=== PATIENT | female | born 1935 ===

== ENCOUNTER 2022-04-06 19:21 | Emergency (ER) | payer OTHER ==
[~2022-04-06] VITALS: Ht 165.1 cm; Wt 49.9 kg
[2022-04-06] MEDS ORDERED: ONDANSETRON 4 MG/2 ML VIAL IV ONE (19:45)
[2022-04-06] MEDS ORDERED: IV NORMAL SALINE 1000 ML BAG IV ONE (19:45)
[2022-04-06 20:19] LABS: MEAN CORPUSCULAR HEMOGLOBIN 31.8 uug (23.8-33.4); MEAN CORPUSCULAR VOLUME 95.1 fL (73.0-96.2); PLATELET COUNT (AUTO) 240 K/uL (152-348)
[2022-04-06 20:28] LABS: CARBON DIOXIDE 29 mmol/L (21-32); CHLORIDE 103 mmol/L (98-107); CREATININE 0.7 mg/dL (0.6-1.3); GLUCOSE 261 mg/dL (74-106); POTASSIUM 4.1 mmol/L (3.5-5.1); UREA NITROGEN, BLOOD 9 mg/dL (7-18)
[2022-04-06 20:41] LABS: THYROID STIMULATING HORMONE 0.369 mIU/mL (0.358-3.740)
[2022-04-06 20:43] LABS: ALANINE AMINOTRANSFERASE 22 U/L (16-63); ALKALINE PHOSPHATASE 82 U/L (50-136); ASPARTATE AMINOTRANSFERASE 17 U/L (15-37); BILIRUBIN,DIRECT 0.1 mg/dL (0.0-0.2); BILIRUBIN,TOTAL 0.7 mg/dL (0.2-1.0); TOTAL PROTEIN, SERUM 6.9 g/dL (6.4-8.2)
[2022-04-06] MEDS ORDERED: ONDANSETRON 4 MG/2 ML VIAL ONE (20:59)
[2022-04-06 21:42] LABS: *BILIRUBIN,URIN NEGATIVE (NEGATIVE); *BLOOD, URINE NEGATIVE (NEGATIVE); *CLARITY,URINE SLIGHTLY CLOUDY (CLEAR); *COLOR,URINE YELLOW (YELLOW); *KETONES,URINE 1+ (NEGATIVE); *UROBILINOGEN,URINE 0.2 E.U./dl (NORMAL); LEUKOCYTE ESTERASE ,URINE NEGATIVE (NEGATIVE); NITRITE, URINE NEGATIVE (NEGATIVE); UGLUCOSE 3+ (NEGATIVE)
[2022-04-06 22:30] LABS: BACTERIA,URINE MANY /HPF (NONE SEEN); RBC,URINE 0-3 /HPF (0-3); SQUAMOUS EPITHELIAL CELL,UR FEW /HPF (NONE SEEN)
[2022-04-07] MEDS ORDERED: MECLIZINE HCL 25 MG TABLET ONE (01:08)
[2022-04-07] MEDS ORDERED: MECLIZINE HCL 25 MG TABLET PO ONE (01:15)
--- NOTE | 2022-04-07 03:20 | NUR ---
PATIENT ABLE TO WALKED WITH STEADY GAIT WITH NO DIZZINESS.
--- NOTE | 2022-04-07 03:27 | NUR ---
IV removed. Catheter intact and site benign. Pressure and 4x4 gauze applied to site. No bleeding noted.
[2022-04-07] MEDS ORDERED: MECL-159 PO (03:35)
--- NOTE | 2022-04-07 03:58 | NUR ---
Patient discharged to home in stable condition WITH [facility] TAKING PATIENT HOME. Written and verbal after care instructions given. Patient verbalizes understanding of instructions. Stressed follow up or return to ER for worsening s/s.
[2022-04-07 03:59] VITALS: BP 139/75
== END 2022-04-07 03:59 | disposition home or self-care (01) ==
LOC: EDSEX 19:24 → ER 19:24
DX: R42 Dizziness and giddiness (principal); R11.2 Nausea with vomiting, unspecified; E11.9 Type 2 diabetes mellitus without complications; E78.00 Pure hypercholesterolemia, unspecified; R91.8 Other nonspecific abnormal finding of lung field; Z20.822 Contact with and (suspected) exposure to COVID-19
CPT/HCPCS: 99285; 96374; 70450; 71045; 87426; 80076; 80048; 81001; 84443; 85025; 84145; 85730; 87040 ×2; 87086; 84484; 36415; 93005; 83605; J2405; A4663; J7040; J8597